=== PATIENT | male | born 1980 | race American Indian/Alaskan Native ===

== ENCOUNTER 2018-12-23 09:16 | Inpatient (IN) ==
[2018-12-23] MEDS ORDERED: VANCOMYCIN 1,500 MG in 0.9 % SODIUM CHLORIDE 500 ML IV ONE (09:39)
[2018-12-23] MEDS ORDERED: LACTATED RINGERS 1,000 ML IV ONE (09:39)
--- NOTE | 2018-12-23 09:41 | Emergency Department Note ---
Skin/Abscess/FB HPI - General Chief complaint: Skin/Abscess/Foreign Body Stated complaint: Spider bite R leg Time Seen by Provider: 12/23/18 09:32 Source: patient Mode of arrival: wheelchair Limitations: no limitations - History of Present Illness HPI Narrative: This patient has developed cellulitis on the lateral side of his right upper lower leg. This is just below the knee. Started a week ago. He went to [facility] and got Bactrim but he feels like is getting worse he is having trouble sleeping and is very painful. Also is draining spontaneously. - Related Data Home Medications Medication Instructions Recorded Confirmed No Known Home Meds 12/23/18 12/23/18 Allergies Allergy/AdvReac Type Severity Reaction Status Date / Time Penicillins AdvReac Intermediate Unknown Verified 12/23/18 08:49 Review of Systems All systems ED: reviewed and negative except as stated. Past Medical History - Past Medical History Medical history: Reports: asthma - Social History smoking status: Never smoker Physical Exam Right lateral leg just below the knee shows an area of erythema slight induration with some spontaneous drainage from the area. I do not detect a large abscess underneath at this time. Limitations: no limitations General appearance: alert Head: atraumatic Neurological: Present: alert Psychiatric: Present: normal affect Skin: Present: warm, dry Course Vital Signs Temperature 98.3 F 12/23/18 09:27 Pulse Rate 92 H 12/23/18 09:27 Respiratory Rate 18 12/23/18 09:27 Blood Pressure 144/83 12/23/18 09:27 Pulse Oximetry (%) 100 12/23/18 09:27 Temperature 98.3 F 12/23/18 09:27 Pulse Rate 81 12/23/18 10:45 Respiratory Rate 18 12/23/18 09:27 Blood Pressure 134/82 12/23/18 10:45 Pulse Oximetry (%) 96 12/23/18 10:45 Skin/Abscess/Foreign Body - [facility] Narrative Medical decision making narrative: This patient's lab work is a bit worrisome and so we have decided to admit him observation to the hospital. I did give him 1 1/2 g of vancomycin. We will als o get an ultrasound of the area to look for any deeper abscess. His hyperglycemia is unexplained but he is been told in the past that he does run a high blood sugar and he does have diabetes in his family. - Lab Data Lab results reviewed: Yes I reviewed the patient's lab results. Result diagrams: 12/23/18 Unknown 12/23/18 Unknown Lab Results 12/23/18 12/23/18 12/23/18 Range/Units Unknown Unknown Unknown WBC 16.9 H (4.5-11.0) K/mcL RBC 3.90 L (4.50-5.90) M/mcL Hgb 12.4 L (13.5-16.5) g/dL Hct 36.4 L (41.0-55.0) % MCV 93.3 (80.0-100.0) fL MCH 31.7 (26.0-34.0) pg MCHC 34.0 (31.0-36.0) g/dL RDW 12.9 (11.5-14.5) % Plt Count 334 (140-440) K/mcL MPV 7.7 (7.4-10.4) fL Gran % 90.9 H (38.0-78.0) % Lymph % (Auto) 5.6 L (15.5-49.0) % [place] % (Auto) 3.5 (1.0-12.0) % Eos % (Auto) 0 (0.0-7.0) % Baso % (Auto) 0 (0.0-2.0) % Gran # 15.4 H (1.8-8.0) K/mcL Lymph # (Auto) 1.0 L (1.5-4.8) K/mcL [place] # (Auto) 0.6 (0.1-0.9) K/mcL Eos # (Auto) 0 (0.0-0.7) K/mcL Baso # (Auto) 0 (0.0-0.3) K/mcL VBG Lactic Acid 2.4 H (0.5-2.0) mmol/L Sodium 129 L (133-145) mmol/L Potassium 4.0 (3.3-5.1) mmol/L Chloride 93 L (96-108) mmol/L Carbon Dioxide 21 L (22-30) mmol/L Anion Gap 15.0 (8-16) BUN 11 (6-20) mg/dl Creatinine 0.8 (0.7-1.2) mg/dl GFR Calculation 113 Glucose 456 H* (70-105) mg/dL Calcium 8.8 (8.6-10.4) mg/dl Total Bilirubin 1.9 H (0.0-1.0) mg/dL AST 14 (0-37) U/l ALT 22 (0-40) U/l Alkaline Phosphatase 83 (39-117) U/L Total Protein 7.9 (5.9-8.4) gm/dL Albumin 4.0 (3.2-5.2) gm/dL Globulin 3.9 H (2.2-3.7) gm/dL Albumin/Globulin Ratio 1.0 (1.0-2.3) Disposition Pt seen by MANAGER TELEMETRY/PA only: No Clinical Impression: Cellulitis Disposition: Xfer As Outpt/Obs ([facility]) Condition: Good Referrals: No,PCP [Primary Care Provider] - Time of Disposition: 12:04
[2018-12-23] MEDS ORDERED: HYDROmorphone 2 MG/ML VIAL IV SCH (09:45)
[2018-12-23 10:32] LABS: Basophils # (Auto) 0 K/mcL (0.0-0.3); Basophils % (Auto) 0 % (0.0-2.0); Eosinophils # (Auto) 0 K/mcL (0.0-0.7); Eosinophils % (Auto) 0 % (0.0-7.0); Granulocytes % (Auto) 90.9 % (38.0-78.0); Hematocrit 36.4 % (41.0-55.0); Hemoglobin 12.4 g/dL (13.5-16.5); Lymphocytes % (Auto) 5.6 % (15.5-49.0); Mean Cell Volume 93.3 fL (80.0-100.0); Mean Platelet Volume 7.7 fL (7.4-10.4); Monocytes # (Auto) 0.6 K/mcL (0.1-0.9); Monocytes % (Auto) 3.5 % (1.0-12.0); Platelet Count 334 K/mcL (140-440); Red Cell Distribution Width 12.9 % (11.5-14.5); WBC 16.9 K/mcL (4.5-11.0)
[2018-12-23] MEDS ORDERED: 0.9 % SODIUM CHLORIDE 1,000 ML IV ONE (10:44)
[2018-12-23 10:53] LABS: ALT/SGPT 22 U/l (0-40); AST/SGOT 14 U/l (0-37); Alkaline Phosphatase 83 U/L (39-117); Bilirubin,Total 1.9 mg/dL (0.0-1.0); Blood Urea Nitrogen 11 mg/dl (6-20); Calcium 8.8 mg/dl (8.6-10.4); Carbon Dioxide 21 mmol/L (22-30); Chloride 93 mmol/L (96-108); Globulin 3.9 gm/dL (2.2-3.7); Glomerular Filtration Rate 113; Glucose 456 mg/dL (70-105)
--- NOTE | 2018-12-23 12:02 | Internal Med History&Physical ---
Medical - H&P: [facility] Patient information: Note initiated : 12/23/18 at 12:00 pm Service Date, if different from initiated Date: [] Patient: Dileep Clark a 38 y/o M admitted on for Spider bite R leg. Chief Complaint: [] History of present illness: Mr. Clark is a 38 year old M With no prior medical history. Presents to the ED with swelling, redness, and tenderness on his right calf. Patient states about a week ago he is on the couch he felt a sting and there was a tiny red spot on the back of his calf. From that point on over the next days it became swollen red and tender. It strained some fluid spontaneously the past couple days. He went into [facility] 3 days ago and got Bactrim. Is been taking that however it has gotten worse with increased swelling redness and pain. He denies polyuria polydipsia. Does not carry a diagnosis of diabetes but was told he had high blood sugars when he had a thumb surgery few years ago. 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 He complains of fever chills and nausea. Review of Systems: Pertinent positives as above. Denies headache/vomiting/chest or abdominal pain/cough/dyspnea/diarrhea. Many 10 point review of system reviewed negative Medical - H&P: H Medical history: Past medical history: None Past surgical history: Left thumb and right ankle Family history: Mother had diabetes and CAD father's history is unknown Social history: Patient is a former smoker drinks alcohol rarely Medical - H&P: Meds Home Medications Medication Instructions Recorded Confirmed Type No Known Home Meds 12/23/18 12/23/18 History Allergies Allergy/AdvReac Type Severity Reaction Status Date / Time Penicillins AdvReac Intermediate Unknown Verified 12/23/18 08:49 Medical - H&P: Exam - Constitutional Vitals: Temp Pulse Resp BP Pulse Ox 98.3 F 81 18 134/82 96 12/23/18 09:27 12/23/18 10:45 12/23/18 09:27 12/23/18 10:45 12/23/18 10:45 Exam: General: Alert, Awake, No acute Distress Eyes/N/T: EOMI, PEERL, Head/Neck: neck supple, normocephalic atraumatic CV: RRR, No murmurs, normal s1/s2 Pulm: Clear b/l, no wheezing/rhonchi/rales Abd: soft, nontender, +BS x4 Ext: no clubbing/cyanosis/edema. Right posterior-lateral calf lesion swollen/erythematous/tender with small central eschar, induration Neuro: Alert, no focal deficits, moves all extremities, CN 2-12 grossly intact, symmetrical strength b/l upper/lower, sensations intact b/l upper/lower Skin: warm/dry Medical - H&P: Reslt - Labs CBC & Chem 7: 12/23/18 Unknown 12/23/18 Unknown Labs: Short CBC 12/23/18 Range/Units Unknown WBC 16.9 H (4.5-11.0) K/mcL Hgb 12.4 L (13.5-16.5) g/dL Hct 36.4 L (41.0-55.0) % Plt Count 334 (140-440) K/mcL BMP 12/23/18 Unknown Sodium 129 L Potassium 4.0 Chloride 93 L Carbon Dioxide 21 L BUN 11 Creatinine 0.8 Glucose 456 H* Calcium 8.8 Liver Function 12/23/18 Range/Units Unknown Total Bilirubin 1.9 H (0.0-1.0) mg/dL AST 14 (0-37) U/l ALT 22 (0-40) U/l Alkaline Phosphatase 83 (39-117) U/L Albumin 4.0 (3.2-5.2) gm/dL - Impressions Ultrasound pending Medical - H&P: A/P - Narrative A/P Narrative: A: *Cellulitis/?abscess right Calf, suspect insect bite: -Failed outpatient therapy with Bactrim -Leukocytosis *Hyperglycemia with Early DKA/New DM II diagnosis: 456 on admission, denies carrying a diagnosis of diabetes *obesity: P: -IV abx vanc/rocephin -pending u/s -wound care -close monitoring of glucose with Insulin coverage -A1c -IVF's -DM education and diet -metformin and lifestyle/dietary modifications -ppx: lovenox
[2018-12-23 12:05] LABS: Appearance,Urine CLEAR; Bacteria,Urine 0 /hpf (0); Bilirubin,Urine NEG (NEG); Color,Urine YELLOW; Culture Indicated,Urine NO; Glucose,Urine (UA) >=500 mg/dL (NEG); Ketones,Urine 20 mg/dL (NEG); Leukocyte Esterase,Urine NEG /uL (NEG); Nitrate,Urine NEG (NEG); Protein,Urine NEG (NEG); Specific Gravity,Urine 1.033 (1.000-1.035); Urine Blood NEG mg/dL (<0.03); Urine RBC 1 /hpf (0-1); Urine Squamous Epithelial Cell 0 /hpf (0-4); Urine WBC 0 /hpf (0-4)
[2018-12-23] MEDS ORDERED: INSULIN 70/30, HUMAN 1 UNIT/0.01 ML UNIT SQ ONE (12:06)
[2018-12-23] MEDS ORDERED: INSULIN LISPRO 1 UNIT/0.01 ML UNIT SQ ONE (12:21)
[2018-12-23] MEDS ORDERED: HYDROmorphone 2 MG/ML VIAL IV ONE (12:28)
--- NOTE | 2018-12-23 12:33 | Ultrasound Report ---
CLINICAL INFORMATION: Right leg injury felt to be an insect bite. Erythema and cellulitis TECHNIQUE: Routine soft tissue ultrasound COMPARISON: None. FINDINGS: There is an area of swelling and erythema in the posterior right calf. There is probable cellulitis but no focal mass. No solid or cystic mass. No detectable abscess. No shadowing abnormality to indicate gas. IMPRESSION: 1. Probable cellulitis 2. No focal abnormality. No abscess or evidence for soft tissue gas Interpreted and Authenticated by: Brian Springer 12/23/18
[2018-12-23] MEDS ORDERED: PROMETHAZINE 25 MG TABLET PO PRN (12:50)
[2018-12-23] MEDS ORDERED: DEXTROSE 31 GM ORAL.SUSP PO PRN (12:50)
[2018-12-23] MEDS ORDERED: ONDANSETRON 4 MG/2 ML VIAL IV PRN (12:50)
[2018-12-23] MEDS ORDERED: DEXTROSE 50% 50 ML VIAL IV PRN (12:50)
[2018-12-23] MEDS ORDERED: POLYETHYLENE GLYCOL 3350 17 GM PACKET PO PRN (12:50)
[2018-12-23] MEDS ORDERED: VANCOMYCIN PER PHARMACY IV SCH (12:50)
[2018-12-23 13:24] LABS: Hemoglobin A1C 10.3 % HGB (4.0-6.0)
[2018-12-23] MEDS ORDERED: MUPIROCIN OINT 2% 22GM TOPICAL ONE (13:43)
[2018-12-23] MEDS: cefTRIAXone 2 GM in DEXTROSE 5% IN WATER 50 ML IV SCH (13:51)
[2018-12-23] MEDS: 0.9 % SODIUM CHLORIDE 1,000 ML IV SCH ×2 (13:52→23:45)
[2018-12-23] MEDS: 0.9 % SODIUM CHLORIDE 10 ML SYRINGE IV SCH ×2 (14:13→20:36)
[2018-12-23] MEDS: ACETAMINOPHEN 325 MG TABLET PO PRN (14:58)
[2018-12-23] MEDS: metFORMIN 500 MG TAB.XL.24H PO SCH (14:58)
[2018-12-23] MEDS: INSULIN LISPRO 1 UNIT/0.01 ML UNIT SQ SCH ×3 (15:15→22:33)
--- NOTE | 2018-12-23 19:46 | General Surgery Consult Note ---
History of Present Illness Patient information: Note initiated : 12/23/18 at 7:40 pm Service Date, if different from initiated Date: [] Patient: Dileep Clark 38 y/o M admitted on 12/23/18 for Spider bite R leg. Chief Complaint: [] Consult date: 12/23/18 Requesting physician: Jackson Mendoza (Wound Care. Right lateral leg and knee skin wound) History of present illness: I saw this patient in room 106, along with nursing staff. CC: Uncontrolled elevated blood sugars and a NON healing skin ans skin structure wound RIGHT lateral knee and upper leg area for over a week. Seen at [facility], ER recently and treated with PO antibiotics, without relief. This wound is a CSSSI with an evolving softening of skin and skin structures, without fluctuance at this time. Situated around skin fold and hair. Not sure as to how it started. NOT aware of being a diabetic. Never had this kind of problem before. 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 Denies any other acute constitutional or systemic complaints. Medications and Allergies Home Medications Medication Instructions Recorded Confirmed Type No Known Home Meds 12/23/18 12/23/18 History Allergies Allergy/AdvReac Type Severity Reaction Status Date / Time Penicillins AdvReac Intermediate Unknown Verified 12/23/18 08:49 Exam Temp Pulse Resp BP Pulse Ox 99.6 F H 100 H 16 113/57 96 12/23/18 16:50 12/23/18 16:50 12/23/18 16:50 12/23/18 16:50 12/23/18 16:50 - General physical appearance well developed, well nourished, no distress - Eyes PERRL, normal ocular movement - ENT normal pinna, normal nares, normal mucosa, no congestion - Head Head exam IM: Present: atraumatic, normocephalic - Neck no masses, trachea midline, no lymphadenopathy, no venous distension - Cardiovascular Cardiovascular exam IM: Present: normal rate and rhythm - Respiratory normal respiratory effort, clear to auscultation - Abdomen Abdomen: Present: soft, non tender, bowel sounds - Integumentary Present: other (Resolving cellulitis around an area of skin and subcutaneous indurationwithout fluctuance. Warm, swollen, firm with lessening tenderness. Has NOT drained any fluid.) - Neurologic Present: normal coordination, normal sensation, deep tendon reflexes - Musculoskeletal Present: normal gait, normal posture - Psychiatric Present: oriented to time, oriented to person, oriented to place, speech is normal, memory intact Results - Labs 12/23/18 Unknown 12/23/18 Unknown Abnormal lab results 12/23/18 12/23/18 12/23/18 Range/Units 11:32 11:33 11:33 WBC (4.5-11.0) K/mcL RBC (4.50-5.90) M/mcL Hgb (13.5-16.5) g/dL Hct (41.0-55.0) % Gran % (38.0-78.0) % Lymph % (Auto) (15.5-49.0) % Gran # (1.8-8.0) K/mcL Lymph # (Auto) (1.5-4.8) K/mcL VBG Lactic Acid (0.5-2.0) mmol/L Sodium (133-145) mmol/L Chloride (96-108) mmol/L Carbon Dioxide (22-30) mmol/L Glucose (70-105) mg/dL Hemoglobin A1c 10.3 H (4.0-6.0) % HGB Total Bilirubin (0.0-1.0) mg/dL Globulin (2.2-3.7) gm/dL Beta-Hydroxybutyrate 1.34 H (< 0.27) mmol/L Urine Glucose (UA) >=500 A (NEG) mg/dL Urine Ketones 20 A (NEG) mg/dL Urine Urobilinogen 4.0 A (NEG) mg/dL 12/23/18 12/23/18 12/23/18 Range/Units Unknown Unknown Unknown WBC 16.9 H (4.5-11.0) K/mcL RBC 3.90 L (4.50-5.90) M/mcL Hgb 12.4 L (13.5-16.5) g/dL Hct 36.4 L (41.0-55.0) % Gran % 90.9 H (38.0-78.0) % Lymph % (Auto) 5.6 L (15.5-49.0) % Gran # 15.4 H (1.8-8.0) K/mcL Lymph # (Auto) 1.0 L (1.5-4.8) K/mcL VBG Lactic Acid 2.4 H (0.5-2.0) mmol/L Sodium 129 L (133-145) mmol/L Chloride 93 L (96-108) mmol/L Carbon Dioxide 21 L (22-30) mmol/L Glucose 456 H* (70-105) mg/dL Hemoglobin A1c (4.0-6.0) % HGB Total Bilirubin 1.9 H (0.0-1.0) mg/dL Globulin 3.9 H (2.2-3.7) gm/dL Beta-Hydroxybutyrate (< 0.27) mmol/L Urine Glucose (UA) (NEG) mg/dL Urine Ketones (NEG) mg/dL Urine Urobilinogen (NEG) mg/dL Diabetes panel 12/23/18 12/23/18 Range/Units 11:33 Unknown Sodium 129 L (133-145) mmol/L Potassium 4.0 (3.3-5.1) mmol/L Chloride 93 L (96-108) mmol/L Carbon Dioxide 21 L (22-30) mmol/L BUN 11 (6-20) mg/dl Creatinine 0.8 (0.7-1.2) mg/dl Glucose 456 H* (70-105) mg/dL Hemoglobin A1c 10.3 H (4.0-6.0) % HGB Calcium 8.8 (8.6-10.4) mg/dl AST 14 (0-37) U/l ALT 22 (0-40) U/l Alkaline Phosphatase 83 (39-117) U/L Total Protein 7.9 (5.9-8.4) gm/dL Albumin 4.0 (3.2-5.2) gm/dL Calcium panel 12/23/18 Range/Units Unknown Calcium 8.8 (8.6-10.4) mg/dl Albumin 4.0 (3.2-5.2) gm/dL Pituitary panel 12/23/18 Range/Units Unknown Sodium 129 L (133-145) mmol/L Potassium 4.0 (3.3-5.1) mmol/L Chloride 93 L (96-108) mmol/L Carbon Dioxide 21 L (22-30) mmol/L BUN 11 (6-20) mg/dl Creatinine 0.8 (0.7-1.2) mg/dl Glucose 456 H* (70-105) mg/dL Calcium 8.8 (8.6-10.4) mg/dl Adrenal panel 12/23/18 Range/Units Unknown Sodium 129 L (133-145) mmol/L Potassium 4.0 (3.3-5.1) mmol/L Chloride 93 L (96-108) mmol/L Carbon Dioxide 21 L (22-30) mmol/L BUN 11 (6-20) mg/dl Creatinine 0.8 (0.7-1.2) mg/dl Glucose 456 H* (70-105) mg/dL Calcium 8.8 (8.6-10.4) mg/dl Total Bilirubin 1.9 H (0.0-1.0) mg/dL AST 14 (0-37) U/l ALT 22 (0-40) U/l Alkaline Phosphatase 83 (39-117) U/L Total Protein 7.9 (5.9-8.4) gm/dL Albumin 4.0 (3.2-5.2) gm/dL All other labs normal. Assessment and Plan (1) Contact dermatitis Status: Acute Priority: Medium Comment: On Local wound Care and IV antibiotics. MRSA protocol Qualifiers: Contact dermatitis type: unspecified Contact dermatitis trigger: other trigger Qualified Code(s): L25.8 - Unspecified contact dermatitis due to other agents (2) Cellulitis LOcal wound Care and IV antibiotics. MRSA protocol Status: Acute Priority: Medium Qualifiers: Site of cellulitis of extremity: lower extremity Laterality: right Qualified Code(s): L03.115 - Cellulitis of right lower limb (3) Cellulitis and abscess of right lower extremity THIS has NOT fully formed into an abscess. There is induration of skin and subcutaneous dermis and adipose tissue with surrounding cellulitis, NO fluctuance. Status: Acute Priority: Medium
[2018-12-23] MEDS: VANCOMYCIN 1,500 MG in 0.9 % SODIUM CHLORIDE 500 ML IV SCH (20:35)
[2018-12-23] MEDS: MUPIROCIN OINT 2% 22GM NARES SCH (20:35)
[2018-12-23] MEDS: DOCUSATE SODIUM 100 MG CAPSULE PO SCH (20:35)
[2018-12-23] MEDS ORDERED: SENNOSIDES 1 TABLET PO PRN (21:00)
[2018-12-23] MEDS: HYDROcodone/APAP 5/325MG TABLET PO PRN (22:04)
[2018-12-24] MEDS: ACETAMINOPHEN 325 MG TABLET PO PRN ×2 (03:57→19:05)
[2018-12-24] MEDS: 0.9 % SODIUM CHLORIDE 10 ML SYRINGE IV SCH ×3 (05:21→21:59)
[2018-12-24 05:56] LABS: ALT/SGPT 21 U/l (0-40); AST/SGOT 22 U/l (0-37); Albumin 3.3 gm/dL (3.2-5.2); Albumin/Globulin Ratio 0.9 (1.0-2.3); Alkaline Phosphatase 85 U/L (39-117); Bilirubin,Direct 0.8 mg/dL (0.0-0.3); Bilirubin,Total 1.6 mg/dL (0.0-1.0); Blood Urea Nitrogen 9 mg/dl (6-20); Calcium 8.5 mg/dl (8.6-10.4); Carbon Dioxide 23 mmol/L (22-30); Chloride 98 mmol/L (96-108); Globulin 3.5 gm/dL (2.2-3.7); Glomerular Filtration Rate 127; Glucose 194 mg/dL (70-105); Lactate Dehydrogenase 137 U/L (94-250); Triglycerides 113 mg/dl (<150); Uric Acid 3.4 mg/dL (2.5-8.0)
[2018-12-24] MEDS: HYDROcodone/APAP 5/325MG TABLET PO PRN ×4 (06:00→19:06)
[2018-12-24 06:02] LABS: Hematocrit 31.9 % (41.0-55.0); Hemoglobin 10.8 g/dL (13.5-16.5); Mean Cell Volume 93.8 fL (80.0-100.0); Mean Corpuscular HGB Conc 33.8 g/dL (31.0-36.0); Mean Platelet Volume 7.4 fL (7.4-10.4); Platelet Count 308 K/mcL (140-440); Red Cell Distribution Width 12.6 % (11.5-14.5); WBC 12.3 K/mcL (4.5-11.0)
[2018-12-24 07:56] LABS: Hypochromasia FEW (NONE SEEN); Lymphocytes % 9 % (15-49); Monocytes % (Manual) 7 % (1-12); Platelet Estimate NORMAL (NORMAL); Polychromasia 1+ (NONE SEEN); RBC Morphology ABNORM (NORMAL); Segmented Neutrophils % 84 % (38-78)
[2018-12-24] MEDS: INSULIN LISPRO 1 UNIT/0.01 ML UNIT SQ SCH ×4 (07:57→21:34)
--- NOTE | 2018-12-24 08:00 | Internal Med Progress Note ---
Medical - PN: Subj Patient information: Note initiated : 12/24/18 at 7:57 am Service Date, if different from initiated Date: [] Patient: Dileep Clark 38 y/o M admitted on 12/23/18 for Spider bite R leg. Chief Complaint: [] Interval history: Mr. Clark is a 38 year old M With no prior medical history. Presents to the ED with swelling, redness, and tenderness on his right calf. Patient states about a week ago he is on the couch he felt a sting and there was a tiny red spot on the back of his calf. From that point on over the next days it became swollen red and tender. It strained some fluid spontaneously the past couple days. He went into [facility] 3 days ago and got Bactrim. Is been taking that however it has gotten worse with increased swelling redness and pain. He denies polyuria polydipsia. Does not carry a diagnosis of diabetes but was told he had high blood sugars when he had a thumb surgery few years ago. 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 He complains of fever chills and nausea. 12/24 He feels his redness and swelling is improving. vat tender. Denies feeling feverish this morning. No other complaints. Review of Systems: denies headache/fever/chills/nausea/vomiting/chest or abdominal pain/cough/dyspnea/diarrhea. Otherwise see above. - Constitutional Vitals: Vital Signs Temp Pulse Resp BP Pulse Ox 100.1 F H 96 H 16 128/73 96 12/24/18 04:01 12/24/18 04:01 12/24/18 04:01 12/24/18 04:01 12/24/18 04:01 Period Temp Pulse Resp BP Sys/Garcia Pulse Ox Last 24 Hr 98.2 F-100.1 F 81-101 12-18 105-144/54-83 94-100 Intake and Output 12/23/18 12/24/18 12/24/18 21:59 05:59 13:59 Intake Total 2090 400 Output Total 675 2600 Balance 1415 -2200 Weight 119.522 kg Intake & Output: Intake & Output 12/23/18 12/24/18 12/24/18 21:59 05:59 13:59 Intake Total 2090 400 Output Total 675 2600 Balance 1415 -2200 Weight 119.522 kg Intake: IV 1050 Sodium Chloride 0.9% 1,000 ml @ 1000 125 mls/hr IV .Q8H [facility] Rx#: [id number] Rocephin 2 gm In Dextrose 5% in 50 Water 50 ml @ 100 mls/hr IV DAILY [facility] Rx#:[id number] Oral 1040 400 Output: Void Amount 675 2600 Other: Meal Lunch Percent of Meal Consumed 100% Urine Appearance Clear Clear Urine Color Light Sherry Light Sherry Exam: General: Alert, Awake, No acute Distress Eyes/N/T: EOMI,, Head/Neck: neck supple, CV: RRR, No murmurs, Pulm: Clear b/l, no wheezing/rhonchi/rales Abd: soft, nontender, +BS x4 Ext: no clubbing/cyanosis/edema. Right posterior-lateral calf lesion swollen/erythematous/tender with small central eschar, induration -slowly improving Neuro: Alert, no focal deficits, moves all extremities, Skin: warm/dry Medical - PN: Obj Da - Labs CBC & Chem 7: 12/24/18 04:29 12/24/18 04:29 Labs: Abnormal Lab Results 12/24/18 12/24/18 12/23/18 04:29 04:29 Unknown WBC 12.3 H RBC 3.40 L Hgb 10.8 L Hct 31.9 L Gran % Lymph % (Auto) Gran # Lymph # (Auto) Seg Neutrophils % 84 H Lymphocytes % 9 L RBC Morphology Abnorm A Polychromasia 1+ A Hypochromasia Few A VBG Lactic Acid 2.4 H Sodium Chloride Carbon Dioxide Creatinine 0.6 L Glucose 194 H Hemoglobin A1c Calcium 8.5 L Total Bilirubin 1.6 H Direct Bilirubin 0.8 H GGT 98 H Globulin Albumin/Globulin Ratio 0.9 L Beta-Hydroxybutyrate Urine Glucose (UA) Urine Ketones Urine Urobilinogen 12/23/18 12/23/18 12/23/18 Unknown Unknown 11:33 WBC 16.9 H RBC 3.90 L Hgb 12.4 L Hct 36.4 L Gran % 90.9 H Lymph % (Auto) 5.6 L Gran # 15.4 H Lymph # (Auto) 1.0 L Seg Neutrophils % Lymphocytes % RBC Morphology Polychromasia Hypochromasia VBG Lactic Acid Sodium 129 L Chloride 93 L Carbon Dioxide 21 L Creatinine Glucose 456 H* Hemoglobin A1c 10.3 H Calcium Total Bilirubin 1.9 H Direct Bilirubin GGT Globulin 3.9 H Albumin/Globulin Ratio Beta-Hydroxybutyrate Urine Glucose (UA) Urine Ketones Urine Urobilinogen 12/23/18 12/23/18 11:33 11:32 WBC RBC Hgb Hct Gran % Lymph % (Auto) Gran # Lymph # (Auto) Seg Neutrophils % Lymphocytes % RBC Morphology Polychromasia Hypochromasia VBG Lactic Acid Sodium Chloride Carbon Dioxide Creatinine Glucose Hemoglobin A1c Calcium Total Bilirubin Direct Bilirubin GGT Globulin Albumin/Globulin Ratio Beta-Hydroxybutyrate 1.34 H Urine Glucose (UA) >=500 A Urine Ketones 20 A Urine Urobilinogen 4.0 A Meds: Medications Acetaminophen (Tylenol) 650 mg PO Q6HP PRN PRN Reason: PAIN/FEVER > 101 Last Admin: 12/24/18 03:57 Dose: 650 mg Documented by: Hydrocodone Bitart/Acetaminophen (Parachute 5/325mg) 1 tab PO Q4HP PRN PRN Reason: PAIN LEVEL 3-6 Last Admin: 12/24/18 06:00 Dose: 1 tab Documented by: Dextrose (Dextrose 50%) 0 ml IV UD PRN PRN Reason: Hypoglycemia Diagnostic Test (Pha) (Accu-Chek) 1 each FS ACHS [facility] Last Admin: 12/23/18 22:12 Dose: 1 each Documented by: Docusate Sodium (Colace) 100 mg PO BID [facility] Last Admin: 12/23/18 20:35 Dose: Not Given Documented by: Enoxaparin Sodium (Lovenox) 40 mg SQ DAILY [facility] Glucose (Insta-Glucose) 15 gm PO PRN PRN PRN Reason: Hypoglycemia Ceftriaxone Sodium 2 gm/ (Dextrose) 50 mls @ 100 mls/hr IV DAILY [facility]; Protocol Last Infusion: 12/23/18 14:21 Dose: Infused Documented by: Vancomycin HCl 1,500 mg/ (Sodium Chloride) 500 mls @ 333.3 mls/hr IV Q12H [facility] Last Admin: 12/23/18 20:35 Dose: 333.3 mls/hr Documented by: Insulin Human Lispro (Humalog) 0 unit SQ [facility]; Protocol Metformin HCl (Glucophage) 500 [facility] Last Admin: 12/23/18 14:58 Dose: 500 mg Documented by: Morphine Sulfate (Morphine) 0 mg IV Q3HP PRN PRN Reason: Pain Last Admin: 12/24/18 03:59 Dose: 3 mg Documented by: Mupirocin (Bactroban Oint 2%) 1 dose NARES BID [facility] Stop: 12/26/18 21:00 Last Admin: 12/23/18 20:35 Dose: 1 dose Documented by: Ondansetron HCl (Zofran) 4 mg IV Q4HP PRN PRN Reason: Nausea And Vomiting Polyethylene Glycol (Miralax) 17 gm PO DAILYP PRN PRN Reason: Constipation Promethazine HCl (Phenergan) 0 mg PO Q6HP PRN PRN Reason: Nausea And Vomiting Senna (Senokot) 2 tab PO HSP PRN PRN Reason: Constipation Sodium Chloride (Saline Flush) 10 ml IV Q8 [facility] Last Admin: 12/24/18 05:21 Dose: Not Given Documented by: Vancomycin HCl (Vancomycin Per Pharmacy) 1 order IV [facility]; Protocol Medical - PN: A/P - Time Spent With Patient Total time spent is greater than 50% in coordination of care (as documented) at patient's floor/unit and/or counseling patient: - Narrative A/P Narrative: A: *Cellulitis/?abscess right Calf, suspect insect bite: -Failed outpatient therapy with Bactrim -Leukocytosis improving -u/s no abscess *Hyperglycemia with Early DKA/New DM II diagnosis: 456 on admission, denies carrying a diagnosis of diabetes -A1c 10.3 -improved *obesity: P: -IV abx vanc/rocephin -wound care -close monitoring of glucose with Insulin coverage -DM education and diet -metformin and lifestyle/dietary modifications, will d/c with metformin and possibly SSI until seen by PCP -ppx: lovenox Medical - PN: Qual - VTE Deep Vein Thrombosis/Pulmonary Embolism Present on Admission: No
[2018-12-24] MEDS ORDERED: cefTRIAXone 2 GM VIAL ONE (08:10)
[2018-12-24] MEDS: metFORMIN 500 MG TAB.XL.24H PO SCH (08:47)
[2018-12-24] MEDS: cefTRIAXone 2 GM in DEXTROSE 5% IN WATER 50 ML IV SCH (08:48)
[2018-12-24] MEDS: ENOXAPARIN 40 MG/0.4 ML SYRINGE SQ SCH (09:00)
[2018-12-24] MEDS: DOCUSATE SODIUM 100 MG CAPSULE PO SCH ×2 (09:00→21:34)
[2018-12-24] MEDS: VANCOMYCIN 2,000 MG in 0.9 % SODIUM CHLORIDE 500 ML IV SCH ×2 (09:57→21:36)
[2018-12-24] MEDS: MUPIROCIN OINT 2% 22GM NARES SCH ×2 (09:58→21:34)
[2018-12-24] MEDS ORDERED: INSULIN 70/30, HUMAN 1 UNIT/0.01 ML UNIT SQ ONE ×2 (12:06)
[2018-12-24] MEDS: VANCOMYCIN 1,500 MG in 0.9 % SODIUM CHLORIDE 500 ML IV SCH (12:39)
--- NOTE | 2018-12-24 13:22 | Discharge Summary ---
Medical - DS: Prov Patient information: Note initiated : 12/24/18 at 1:17 pm Service Date, if different from initiated Date: [] Patient: Dileep Clark 38 y/o M admitted on 12/23/18 for Spider bite R leg. Chief Complaint: [] Date of admission: 12/23/18 12:45 Discharge date: 12/25/18 Primary care physician: PCP No Consults: 12/23/18 11:41 Consult to Physician [CONS] Stat Comment: Consulting Provider: Jackson Mendoza Reason For Exam: Physician to Consult 12/23/18 13:35 Consult to Physician [CONS] Routine Comment: Consulting Provider: Darci Avalos Reason For Exam: right lower leg Medical - DS: Meds - Discharge Medications Prescriptions: Blood-Glucose Meter [Advanced Glucose Meter] 1 each MC AC #1 each Blood Sugar Diagnostic [Advanced Glucose Test Strip] 1 each MC AC #90 strip Lancets [Advocate Lancets] 1 each MC AC #90 each Insulin Lispro [Insulin Lispro Kwikpen U-100] 100 unit SQ AC #1 insuln.pen Linezolid [Zyvox] 600 mg PO BID #14 tab Active and Home Medications: Home Medications No Known Home Meds 12/23/18 [History Confirmed 12/23/18 Last Taken Unknown] Medical - DS: Hosp Hospital Course: Mr. Clark is a 38 year old M With no prior medical history. Presents to the ED with swelling, redness, and tenderness on his right calf. Patient states about a week ago he is on the couch he felt a sting and there was a tiny red spot on the back of his calf. From that point on over the next days it became swollen red and tender. It strained some fluid spontaneously the past couple days. He went into [facility] 3 days ago and got Bactrim. Is been taking that however it has gotten worse with increased swelling redness and pain. He denies polyuria polydipsia. Does not carry a diagnosis of diabetes but was told he had high blood sugars when he had a thumb surgery few years ago. 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 He complains of fever chills and nausea. 12/24 He feels his redness and swelling is improving. water tender. Denies feeling feverish this morning. No other complaints. 12/25 Redness and swelling improved. Still has a swelling and induration behind the knee causing pain when he tries to extend his knee which is nothing still worried about - but this has improved The pad allows him to bend his knee more easily. Follow-up imaging which is cellulitis no abscess or soft tissue gas. Stable for discharge Discharge diagnosis: Cellulitis failed outpatient therapy diabetes obesity - Time Spent with Patient Total time spent providing and/or coordinating discharge services: Greater than 30 minutes Medical - DS: Exam - Constitutional Vitals: Vital Signs Temp Pulse Resp BP Pulse Ox 12/24/18 11:55 99.2 F H 99 H 16 127/66 95 12/24/18 08:00 99.4 F H 101 H 16 131/64 95 12/24/18 04:01 100.1 F H 96 H 16 128/73 96 12/23/18 23:16 99.5 F H 96 H 16 105/54 94 12/23/18 20:41 12 12/23/18 20:00 99.9 F H 101 H 12 128/74 95 12/23/18 16:50 99.6 F H 100 H 16 113/57 96 Intake and Output 12/23/18 12/24/18 12/24/18 21:59 05:59 13:59 Intake Total 2090 400 2030 Output Total 675 2600 1250 Balance 1415 -2200 780 Intake: IV 1050 1050 Sodium Chloride 0.9% 1,000 ml @ 1000 1000 125 mls/hr IV .Q8H MORIAH Rx#: [id number] Rocephin 2 gm In Dextrose 5% in 50 50 Water 50 ml @ 100 mls/hr IV DAILY MORIAH Rx#:[id number] Oral 1040 400 980 Output: Void Amount 675 2600 1250 Other: Meal Lunch Breakfast Percent of Meal Consumed 100% 100% Urine Appearance Clear Clear Urine Color Light Sherry Light Sherry Weight 119.522 kg Medical - DS: Data Labs on day of discharge: Labs from last 24 hours 12/24/18 12/24/18 12/24/18 08:06 04:29 04:29 WBC 12.3 H RBC 3.40 L Hgb 10.8 L Hct 31.9 L MCV 93.8 MCH 31.7 MCHC 33.8 RDW 12.6 Plt Count 308 MPV 7.4 Total Counted 100 Seg Neutrophils % 84 H Band Neutrophils % Not Reportable Lymphocytes % 9 L Monocytes % (Manual) 7 Platelet Estimate Normal RBC Morphology Abnorm A Polychromasia 1+ A Hypochromasia Few A Sodium 134 Potassium 3.5 Chloride 98 Carbon Dioxide 23 Anion Gap 13.0 BUN 9 Creatinine 0.6 L GFR Calculation 127 Glucose 194 H Hemoglobin A1c Estim Average Glucose Uric Acid 3.4 Calcium 8.5 L Phosphorus 3.0 Magnesium 2.0 Total Bilirubin 1.6 H Direct Bilirubin 0.8 H GGT 98 H AST 22 ALT 21 Alkaline Phosphatase 85 Lactate Dehydrogenase 137 Total Protein 6.8 Albumin 3.3 Globulin 3.5 Albumin/Globulin Ratio 0.9 L Triglycerides 113 Vancomycin Trough < 4.0 12/23/18 11:33 WBC RBC Hgb Hct MCV MCH MCHC RDW Plt Count MPV Total Counted Seg Neutrophils % Band Neutrophils % Lymphocytes % Monocytes % (Manual) Platelet Estimate RBC Morphology Polychromasia Hypochromasia Sodium Potassium Chloride Carbon Dioxide Anion Gap BUN Creatinine GFR Calculation Glucose Hemoglobin A1c 10.3 H Estim Average Glucose 249 Uric Acid Calcium Phosphorus Magnesium Total Bilirubin Direct Bilirubin GGT AST ALT Alkaline Phosphatase Lactate Dehydrogenase Total Protein Albumin Globulin Albumin/Globulin Ratio Triglycerides Vancomycin Trough Medical - DS: A/P - Patient/Caregiver Discharge Instructions Activity: increase activity as tolerated Diet: Consistent Carbohydrate Additional Instructions: [facility] Prescriptions: Blood-Glucose Meter [Advanced Glucose Meter] 1 each AC #1 each Blood Sugar Diagnostic [Advanced Glucose Test Strip] 1 each AC #90 strip Lancets [Advocate Lancets] 1 each AC #90 each Insulin Lispro [Insulin Lispro Kwikpen U-100] 100 unit SQ AC #1 insuln.pen Linezolid [Zyvox] 600 mg PO BID #14 tab Other Amb Orders: OT Discharge Order Location: None Selected - Follow up Plan Follow up with: No,PCP [Primary Care Provider] - Disposition: Home, Self-Care Prognosis: Fair Rehab Potential: Fair Overall status at discharge: patient is progressing back to baseline Medical - DS: Qual - VTE Deep Vein Thrombosis/Pulmonary Embolism Present on Admission: No
--- NOTE | 2018-12-24 14:58 | General Surgery Progress Note ---
Subjective Patient reports: no new complaints, other (Pain and Pressure over the Right lateral knee and leg site is less. Patient feeling better.) Narrative: Note initiated : 12/24/18 at 2:54 pm Service Date, if different from initiated Date: [] Patient: Dileep Clark 38 y/o M admitted on 12/23/18 for Spider bite R leg. Chief Complaint: [] Objective Temp Pulse Resp BP Pulse Ox 99.2 F H 99 H 16 127/66 95 12/24/18 11:55 12/24/18 11:55 12/24/18 11:55 12/24/18 11:55 12/24/18 11:55 AVSS. No tachycardia. VSS. YAYA. No acute changes. Leucocytosis resolving. L/E. DECREASE in erythema,edema and tenderness. NO fluctuance, NO suppuration NO purulence. Periwound Skin and subcutaneous texture improving - Additional Data Intake & Output - Last 24 hours: Intake & Output 12/22/18 12/23/18 12/24/18 12/25/18 05:59 05:59 05:59 05:59 Intake Total 4789 2270 Output Total 3275 1250 Balance 1514 1020 Weight 263 lb 8 oz 263 lb 8 oz - Labs 12/24/18 04:29 12/24/18 04:29 Diabetes panel 12/24/18 Range/Units 04:29 Sodium 134 (133-145) mmol/L Potassium 3.5 (3.3-5.1) mmol/L Chloride 98 (96-108) mmol/L Carbon Dioxide 23 (22-30) mmol/L BUN 9 (6-20) mg/dl Creatinine 0.6 L (0.7-1.2) mg/dl Glucose 194 H (70-105) mg/dL Calcium 8.5 L (8.6-10.4) mg/dl AST 22 (0-37) U/l ALT 21 (0-40) U/l Alkaline Phosphatase 85 (39-117) U/L Total Protein 6.8 (5.9-8.4) gm/dL Albumin 3.3 (3.2-5.2) gm/dL Triglycerides 113 (<150) mg/dl Calcium panel 12/24/18 Range/Units 04:29 Calcium 8.5 L (8.6-10.4) mg/dl Phosphorus 3.0 (2.7-4.5) mg/dL Albumin 3.3 (3.2-5.2) gm/dL Pituitary panel 12/24/18 Range/Units 04:29 Sodium 134 (133-145) mmol/L Potassium 3.5 (3.3-5.1) mmol/L Chloride 98 (96-108) mmol/L Carbon Dioxide 23 (22-30) mmol/L BUN 9 (6-20) mg/dl Creatinine 0.6 L (0.7-1.2) mg/dl Glucose 194 H (70-105) mg/dL Calcium 8.5 L (8.6-10.4) mg/dl Adrenal panel 12/24/18 Range/Units 04:29 Sodium 134 (133-145) mmol/L Potassium 3.5 (3.3-5.1) mmol/L Chloride 98 (96-108) mmol/L Carbon Dioxide 23 (22-30) mmol/L BUN 9 (6-20) mg/dl Creatinine 0.6 L (0.7-1.2) mg/dl Glucose 194 H (70-105) mg/dL Calcium 8.5 L (8.6-10.4) mg/dl Total Bilirubin 1.6 H (0.0-1.0) mg/dL AST 22 (0-37) U/l ALT 21 (0-40) U/l Alkaline Phosphatase 85 (39-117) U/L Total Protein 6.8 (5.9-8.4) gm/dL Albumin 3.3 (3.2-5.2) gm/dL Assessment and Plan (1) Contact dermatitis Problem details: On Local wound Care and IV antibiotics. MRSA protocol Status: Acute Current Visit: Yes (2) Cellulitis Status: Acute Current Visit: Yes (3) Cellulitis and abscess of right lower extremity Status: Acute Current Visit: No - Time Spent With Patient Total time spent is greater than 50% in coordination of care (as documented) at patient's floor/unit and/or counseling patient: Assessment: Resolving inflammatory changes. Responding to IV antibiotics and Local wound care. Plan: Continue current treatment for at least 1-2 days. Will reassess later and consider D/C on PO abiotics. Follow up at wound center D/W Dr. Mendoza, Hospitalist Physician. 25 - 35 minutes
[2018-12-25] MEDS: HYDROcodone/APAP 5/325MG TABLET PO PRN ×4 (00:24→13:30)
[2018-12-25] MEDS: 0.9 % SODIUM CHLORIDE 10 ML SYRINGE IV SCH ×2 (04:25→19:42)
[2018-12-25 05:48] LABS: Basophils # (Auto) 0 K/mcL (0.0-0.3); Basophils % (Auto) 0.2 % (0.0-2.0); Eosinophils # (Auto) 0 K/mcL (0.0-0.7); Eosinophils % (Auto) 0.2 % (0.0-7.0); Granulocytes % (Auto) 77.5 % (38.0-78.0); Hematocrit 32.2 % (41.0-55.0); Hemoglobin 10.8 g/dL (13.5-16.5); Lymphocytes # (Auto) 1.8 K/mcL (1.5-4.8); Lymphocytes % (Auto) 14.5 % (15.5-49.0); Mean Cell Volume 94.2 fL (80.0-100.0); Mean Corpuscular HGB Conc 33.6 g/dL (31.0-36.0); Monocytes # (Auto) 0.9 K/mcL (0.1-0.9); Monocytes % (Auto) 7.6 % (1.0-12.0); Platelet Count 335 K/mcL (140-440); RBC 3.42 M/mcL (4.50-5.90); Red Cell Distribution Width 12.7 % (11.5-14.5); WBC 12.4 K/mcL (4.5-11.0)
[2018-12-25 06:24] LABS: ALT/SGPT 19 U/l (0-40); AST/SGOT 16 U/l (0-37); Albumin 3.3 gm/dL (3.2-5.2); Albumin/Globulin Ratio 0.9 (1.0-2.3); Alkaline Phosphatase 124 U/L (39-117); Bilirubin,Direct 0.4 mg/dL (0.0-0.3); Bilirubin,Total 1.1 mg/dL (0.0-1.0); Blood Urea Nitrogen 8 mg/dl (6-20); Calcium 8.6 mg/dl (8.6-10.4); Carbon Dioxide 25 mmol/L (22-30); Chloride 96 mmol/L (96-108); Globulin 3.7 gm/dL (2.2-3.7); Glomerular Filtration Rate 119; Glucose 205 mg/dL (70-105); Lactate Dehydrogenase 157 U/L (94-250); Triglycerides 122 mg/dl (<150); Uric Acid 3.2 mg/dL (2.5-8.0)
[2018-12-25] MEDS: ENOXAPARIN 40 MG/0.4 ML SYRINGE SQ SCH (08:51)
[2018-12-25] MEDS: cefTRIAXone 2 GM in DEXTROSE 5% IN WATER 50 ML IV SCH (08:54)
[2018-12-25] MEDS: DOCUSATE SODIUM 100 MG CAPSULE PO SCH (08:54)
[2018-12-25] MEDS: metFORMIN 500 MG TAB.XL.24H PO SCH (08:54)
[2018-12-25] MEDS: INSULIN LISPRO 1 UNIT/0.01 ML UNIT SQ SCH ×2 (08:55→11:32)
--- NOTE | 2018-12-25 09:06 | Internal Med Progress Note ---
Medical - PN: Subj Patient information: Note initiated : 12/25/18 at 9:04 am Service Date, if different from initiated Date: [] Patient: Dileep Clark 38 y/o M admitted on 12/23/18 for Spider bite R leg. Chief Complaint: [] Interval history: Mr. Clark is a 38 year old M With no prior medical history. Presents to the ED with swelling, redness, and tenderness on his right calf. Patient states about a week ago he is on the couch he felt a sting and there was a tiny red spot on the back of his calf. From that point on over the next days it became swollen red and tender. It strained some fluid spontaneously the past couple days. He went into [facility] 3 days ago and got Bactrim. Is been taking that however it has gotten worse with increased swelling redness and pain. He denies polyuria polydipsia. Does not carry a diagnosis of diabetes but was told he had high blood sugars when he had a thumb surgery few years ago. 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 He complains of fever chills and nausea. 12/24 He feels his redness and swelling is improving. condenser tube tender. Denies feeling feverish this morning. No other complaints. 12/25 Redness and swelling improved. Still has a swelling and induration behind the knee causing pain when he tries to extend his knee which is nothing still worried about. Review of Systems: denies headache/fever/chills/nausea/vomiting/chest or abdominal pain/cough/dyspnea/diarrhea. Otherwise see above. - Constitutional Vitals: Vital Signs Temp Pulse Resp BP Pulse Ox 99.9 F H 93 H 18 115/61 93 12/25/18 04:24 12/25/18 04:24 12/25/18 04:24 12/25/18 04:24 12/25/18 04:24 Period Temp Pulse Resp BP Sys/Garcia Pulse Ox Last 24 Hr 98.4 F-99.9 F 88-99 16-18 112-129/56-79 93-97 Intake and Output 12/24/18 12/25/18 12/25/18 21:59 05:59 13:59 Intake Total 400 Output Total 925 2100 Balance -925 -1700 Weight 119.522 kg Intake & Output: Intake & Output 12/24/18 12/25/18 12/25/18 21:59 05:59 13:59 Intake Total 400 Output Total 925 2100 Balance -925 -1700 Weight 119.522 kg Intake: Oral 400 Output: Void Amount 925 2100 Other: Urine Appearance Clear Clear Urine Color Bright Yellow Light Sherry Urine Odor Normal Exam: General: Alert, Awake, No acute Distress Eyes/N/T: EOMI,, Head/Neck: neck supple, CV: RRR, No murmurs, Pulm: Clear b/l, no wheezing/rhonchi/rales Abd: soft, nontender, +BS x4 Ext: no clubbing/cyanosis/edema. 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 making it painful to extend knee Neuro: Alert, no focal deficits, moves all extremities, Skin: warm/dry Medical - PN: Obj Da - Labs CBC & Chem 7: 12/25/18 04:30 12/25/18 04:30 Labs: Abnormal Lab Results 12/25/18 12/25/18 12/24/18 04:30 04:30 04:29 WBC 12.4 H RBC 3.42 L Hgb 10.8 L Hct 32.2 L MPV 7.0 L Gran % Lymph % (Auto) 14.5 L Gran # 9.6 H Lymph # (Auto) Seg Neutrophils % Lymphocytes % RBC Morphology Polychromasia Hypochromasia VBG Lactic Acid Sodium Chloride Carbon Dioxide Creatinine 0.6 L Glucose 205 H 194 H Hemoglobin A1c Calcium 8.5 L Total Bilirubin 1.1 H 1.6 H Direct Bilirubin 0.4 H 0.8 H GGT 94 H 98 H Alkaline Phosphatase 124 H Globulin Albumin/Globulin Ratio 0.9 L 0.9 L Beta-Hydroxybutyrate Urine Glucose (UA) Urine Ketones Urine Urobilinogen 12/24/18 12/23/18 12/23/18 04:29 Unknown Unknown WBC 12.3 H RBC 3.40 L Hgb 10.8 L Hct 31.9 L MPV Gran % Lymph % (Auto) Gran # Lymph # (Auto) Seg Neutrophils % 84 H Lymphocytes % 9 L RBC Morphology Abnorm A Polychromasia 1+ A Hypochromasia Few A VBG Lactic Acid 2.4 H Sodium 129 L Chloride 93 L Carbon Dioxide 21 L Creatinine Glucose 456 H* Hemoglobin A1c Calcium Total Bilirubin 1.9 H Direct Bilirubin GGT Alkaline Phosphatase Globulin 3.9 H Albumin/Globulin Ratio Beta-Hydroxybutyrate Urine Glucose (UA) Urine Ketones Urine Urobilinogen 12/23/18 12/23/18 12/23/18 Unknown 11:33 11:33 WBC 16.9 H RBC 3.90 L Hgb 12.4 L Hct 36.4 L MPV Gran % 90.9 H Lymph % (Auto) 5.6 L Gran # 15.4 H Lymph # (Auto) 1.0 L Seg Neutrophils % Lymphocytes % RBC Morphology Polychromasia Hypochromasia VBG Lactic Acid Sodium Chloride Carbon Dioxide Creatinine Glucose Hemoglobin A1c 10.3 H Calcium Total Bilirubin Direct Bilirubin GGT Alkaline Phosphatase Globulin Albumin/Globulin Ratio Beta-Hydroxybutyrate 1.34 H Urine Glucose (UA) Urine Ketones Urine Urobilinogen 12/23/18 11:32 WBC RBC Hgb Hct MPV Gran % Lymph % (Auto) Gran # Lymph # (Auto) Seg Neutrophils % Lymphocytes % RBC Morphology Polychromasia Hypochromasia VBG Lactic Acid Sodium Chloride Carbon Dioxide Creatinine Glucose Hemoglobin A1c Calcium Total Bilirubin Direct Bilirubin GGT Alkaline Phosphatase Globulin Albumin/Globulin Ratio Beta-Hydroxybutyrate Urine Glucose (UA) >=500 A Urine Ketones 20 A Urine Urobilinogen 4.0 A Meds: Medications Acetaminophen (Tylenol) 650 mg PO Q6HP PRN PRN Reason: PAIN/FEVER > 101 Last Admin: 12/24/18 19:05 Dose: 650 mg Documented by: Hydrocodone Bitart/Acetaminophen ([employer] 5/325mg) 1 tab PO Q4HP PRN PRN Reason: PAIN LEVEL 3-6 Last Admin: 12/25/18 05:27 Dose: 1 tab Documented by: Dextrose (Dextrose 50%) 0 ml IV UD PRN PRN Reason: Hypoglycemia Diagnostic Test (Pha) (Accu-Chek) 1 each FS ACHS [facility] Last Admin: 12/25/18 08:54 Dose: 1 each Documented by: Docusate Sodium (Colace) 100 mg PO BID [facility] Last Admin: 12/25/18 08:54 Dose: 100 mg Documented by: Enoxaparin Sodium (Lovenox) 40 mg SQ DAILY [facility] Last Admin: 10/27/19 08:51 Dose: 40 mg Documented by: Glucose (Insta-Glucose) 15 gm PO PRN PRN PRN Reason: Hypoglycemia Ceftriaxone Sodium 2 gm/ (Dextrose) 50 mls @ 100 mls/hr IV DAILY [facility]; Protocol Last Admin: 12/25/18 08:54 Dose: 100 mls/hr Documented by: Vancomycin HCl 2,000 mg/ (Sodium Chloride) 500 mls @ 250 mls/hr IV Q12H [facility] Last Admin: 12/24/18 21:36 Dose: 250 mls/hr Documented by: Insulin Human Lispro (Humalog) 0 unit SQ ACHS [facility]; Protocol Last Admin: 12/25/18 08:55 Dose: 4 units Documented by: [facility]) [facility] Last Admin: 12/25/18 08:54 Dose: 500 mg Documented by: Morphine Sulfate (Morphine) 0 mg IV Q3HP PRN PRN Reason: Pain Last Admin: 12/25/18 05:26 Dose: 3 mg Documented by: Mupirocin (Bactroban Oint 2%) 1 dose NARES BID [facility] Stop: 12/26/18 21:00 Last Admin: 12/24/18 21:34 Dose: 1 dose Documented by: Ondansetron HCl (Zofran) 4 mg IV Q4HP PRN PRN Reason: Nausea And Vomiting Polyethylene Glycol (Miralax) 17 gm PO DAILYP PRN PRN Reason: Constipation Promethazine HCl (Phenergan) 0 mg PO Q6HP PRN PRN Reason: Nausea And Vomiting Senna (Senokot) 2 tab PO HSP PRN PRN Reason: Constipation Sodium Chloride (Saline Flush) 10 ml IV Q8 [facility] Last Admin: 12/25/18 04:25 Dose: 10 ml Documented by: Vancomycin HCl (Vancomycin Per Pharmacy) 1 order IV UD [facility]; Protocol Medical - PN: A/P - Time Spent With Patient Total time spent is greater than 50% in coordination of care (as documented) at patient's floor/unit and/or counseling patient: - Narrative A/P Narrative: A: *Cellulitis/?abscess right Calf, suspect insect bite: -Failed outpatient therapy with Bactrim -Leukocytosis improving -u/s no abscess *Hyperglycemia with Early DKA/New DM II diagnosis: 456 on admission, denies carrying a diagnosis of diabetes -A1c 10.3 -improved *obesity: P: -IV abx vanc/rocephin -wound care -CT of the knee and cellulitic area -close monitoring of glucose with Insulin coverage -DM education and diet -metformin and lifestyle/dietary modifications, will d/c with metformin and possibly SSI until seen by PCP -ppx: [facility]en[facility] Medical - PN: Qual - VTE Deep Vein Thrombosis/Pulmonary Embolism Present on Admission: No
[2018-12-25] MEDS: VANCOMYCIN 2,000 MG in 0.9 % SODIUM CHLORIDE 500 ML IV SCH (10:09)
[2018-12-25] MEDS: MUPIROCIN OINT 2% 22GM NARES SCH (10:09)
--- NOTE | 2018-12-25 10:57 | Cat Scan Report ---
CLINICAL INFORMATION: Cellulitis TECHNIQUE: Axial images through the distal I and proximal calf COMPARISON: Previous ultrasound dated 12/23/2018 FINDINGS: There is subcutaneous edema consistent with cellulitis. No contained fluid collection. There is no mature abscess. There is no soft tissue gas or radiopaque foreign body. Muscles and the distal thigh and proximal calf are negative. No intramuscular abscess. There is normal vascular enhancement without evidence for compartment syndrome. No osseous abnormality. No osteomyelitis. IMPRESSION: 1. Findings consistent with subcutaneous cellulitis. 2. No well-defined abscess. Interpreted and Authenticated by: Brian Springer 12/25/18
--- NOTE | 2018-12-25 14:29 | General Surgery Progress Note ---
Subjective Patient reports: feels better, pain is less, other Narrative: Note initiated : 12/25/18 at 2:27 pm Service Date, if different from initiated Date: [] Patient: Dileep Clark 38 y/o M admitted on 12/23/18 for Spider bite R leg. Chief Complaint: [] Starting to feel better. Warm compress with K-Pad helped. Soft tissue swelling showing early fluctuance. Cellulitis resolved. PAIN is less. Soreness now at back of knee and calf. Objective Temp Pulse Resp BP Pulse Ox 98.8 F 93 H 20 107/57 96 12/25/18 11:34 12/25/18 04:24 12/25/18 11:34 12/25/18 11:34 12/25/18 11:34 AVSS. No changes YAYA. LEFT upper lateral leg inflammation is resolved. Small fluctuant area in the middle ( Insect bite site ) Area cleaned with Betadine swag. Aspirated 0.2 to 0.5 cc of thick heme serous fluid. NO PURULENCE. Specimen obtained for Gram stain and cultures . (Aerobic and Anaerobic) - Additional Data Intake & Output - Last 24 hours: Intake & Output 12/23/18 12/24/18 12/25/18 12/26/18 05:59 05:59 05:59 05:59 Intake Total 4769 3670 550 Output Total 3279 4275 700 Balance 1514 -605 -150 Weight 263 lb 8 oz 263 lb 8 oz - Labs 12/25/18 04:30 12/25/18 04:30 Diabetes panel 12/25/18 Range/Units 04:30 Sodium 134 (133-145) mmol/L Potassium 3.6 (3.3-5.1) mmol/L Chloride 96 (96-108) mmol/L Carbon Dioxide 25 (22-30) mmol/L BUN 8 (6-20) mg/dl Creatinine 0.7 (0.7-1.2) mg/dl Glucose 205 H (70-105) mg/dL Calcium 8.6 (8.6-10.4) mg/dl AST 16 (0-37) U/l ALT 19 (0-40) U/l Alkaline Phosphatase 124 H (39-117) U/L Total Protein 7.0 (5.9-8.4) gm/dL Albumin 3.3 (3.2-5.2) gm/dL Triglycerides 122 (<150) mg/dl Calcium panel 12/25/18 Range/Units 04:30 Calcium 8.6 (8.6-10.4) mg/dl Phosphorus 3.0 (2.7-4.5) mg/dL Albumin 3.3 (3.2-5.2) gm/dL Pituitary panel 12/25/18 Range/Units 04:30 Sodium 134 (133-145) mmol/L Potassium 3.6 (3.3-5.1) mmol/L Chloride 96 (96-108) mmol/L Carbon Dioxide 25 (22-30) mmol/L BUN 8 (6-20) mg/dl Creatinine 0.7 (0.7-1.2) mg/dl Glucose 205 H (70-105) mg/dL Calcium 8.6 (8.6-10.4) mg/dl Adrenal panel 12/25/18 Range/Units 04:30 Sodium 134 (133-145) mmol/L Potassium 3.6 (3.3-5.1) mmol/L Chloride 96 (96-108) mmol/L Carbon Dioxide 25 (22-30) mmol/L BUN 8 (6-20) mg/dl Creatinine 0.7 (0.7-1.2) mg/dl Glucose 205 H (70-105) mg/dL Calcium 8.6 (8.6-10.4) mg/dl Total Bilirubin 1.1 H (0.0-1.0) mg/dL AST 16 (0-37) U/l ALT 19 (0-40) U/l Alkaline Phosphatase 124 H (39-117) U/L Total Protein 7.0 (5.9-8.4) gm/dL Albumin 3.3 (3.2-5.2) gm/dL Assessment and Plan (1) Contact dermatitis Problem details: On Local wound Care and IV antibiotics. MRSA protocol Status: Acute Current Visit: Yes (2) Cellulitis Status: Acute Current Visit: Yes (3) Cellulitis and abscess of right lower extremity Status: Acute Current Visit: No - Narrative A/P Narrative: Assessment: Satisfactory progress and resolution of CSSSI ( ?? Insect bite ) Debrided at bedside. Plan: OK to D/C on PO Zyvox, Tramadol and Bacitracin oint. Follow up at wound care clinic in 2-3 days. Patient to calland confirm appointment. Spoke with nursing staff and Dr. Mendoza, Hospitalist Physician. - Time Spent With Patient Total time spent is greater than 50% in coordination of care (as documented) at patient's floor/unit and/or counseling patient:
--- NOTE | 2018-12-25 14:39 | Brief Operative Note ---
Date of procedure: 12/25/18 Pre-op diagnosis: Resolving Skin infection RIGHT leg Post-op diagnosis: same Procedure: Bedside Debridement and tissue swab for cultures. Grafts/Implants: No Anesthesia: none Findings: NO purulence. Thick heme serous fluid 0.2. CC Complications: none Surgeon: Darci Avalos Estimated blood loss (cc): 0.5 Specimens Removed/Pathology: other Condition: stable Disposition: no change (O K to discharge home with instructions and f/u at wound care clinic 2-3 days.)
[2018-12-25] MEDS: ACETAMINOPHEN 325 MG TABLET PO PRN (15:52)
--- NOTE | 2019-01-02 15:03 | Procedure Note ---
DATE OF PROCEDURE: 12/25/2018 PROCEDURE NOTE: I carried out a bedside dressing change and nonselective cleansing and debridement of this patient's wound measuring 1 x 0.5 cm and aspirated 0.5 mL of fluid sent for culture. Dressings applied. VD:dolores Job ID: [id number] Doc ID: [id number] Darci Avalos MD
== END 2018-12-25 16:15 | disposition home or self-care (01) | DRG 602 ==
LOC: ED 09:16 → MEDSUR 12:45
PROVIDERS: ADMIT Internal Medicine; ATTEND Internal Medicine